=== PATIENT | male | born 1945 | race Caucasian/White ===

== ENCOUNTER 2024-12-23 01:22 | Day surgery (SDC) | payer MEDICARE, BC, SELFPAY ==
[2024-12-13 11:54] VITALS: BMI 32.0
--- OUTSIDE RECORDS SUMMARY | 2024-12-23 01:24 | XMS_ITS | Referral Summary ---
Author Organization [facility] [employer] Address [address] [address] Care Team Providers Care Ecommerce Manager Name Role Phone Fifi Alfonzo Sal DO Primary Care Provider [phone] Source Comments [facility],non-owned Affiliates and Associated Physician Practices is amultiple site organization consisting of ambulatory clinics and hospital sitesin [place] and [place]. This disclosure is being madepursuant to the Care Everywhere program and may not contain all information available regarding this patient. Last updated 18.[facility] Allergies No known active allergies Medications * Be aware that medications may not be up to date on this document. Alwaysverify current medications with the patient. Medication Sig Dispensed Refills Start Date End Date Status amLODIPine (NORVASC) 10 MG tablet Take 10 mg by mouth at bedtime 06/06/2021 Active carvedilol (COREG) 25 MG tablet 25 mg 2 times daily with morning and evening meal 06/25/2021 Active dutasteride (AVODART) 0.5 MG capsule Take 0.5 mg by mouth at bedtime 05/10/2021 Active metFORMIN (GLUCOPHAGE) 500 MG tablet Take 500 mg by mouth 2 times daily 06/17/2021 Active ramipril (ALTACE) 10 MG capsule Take 10 mg by mouth at bedtime 05/18/2021 Active omeprazole (PRILOSEC) 20 MG capsule Take 20 mg by mouth daily before breakfast Active acetaminophen (TYLENOL) 325 MG tablet Take 2 (two) tablets by mouth every 6 hours Maximum allowable Acetaminophen amount = 4 Grams (4000 mg) / 24 hours. Take every 6 hours for the first 10 days when home. After 10 days, take as needed. 0 07/20/2021 Active ibuprofen (MOTRIN) 800 MG tablet Take 800 mg by mouth 2 times daily 12/16/2021 Active Active Problems Problem Noted Date Diagnosed Date Presence of right artificial knee joint 11/08/20 21 Primary osteoarthritis of both knees 06/28/2021 Social History Tobacco Use Types Packs/Day Years Used Date Smoking Tobacco: Never Smokeless Tobacco: Never Alcohol Use Standard Drinks/Week Comments Yes 0 (1 standard drink = 0.6 oz pur e alcohol) ocassionally Sex and Gender Information Value Date Recorded Sex Assigned at Male 08/23/2021 11:45 AM CDT Gender Identity Male 08/23/2021 11:45 AM CDT Sexual Orientation Straight 08/23/2021 11 :45 AM CDT Last Filed Vital Signs Vital Sign Reading Time Taken Comments Blood Pressure 120/65 07/20/2021 11:15 AM CDT Pulse 58 07/20/2021 11:15 AM CDT Temperature 36.7 ??C (98.1 ??F) 07/20/2021 11:15 AM C DT Respiratory Rate 18 07/20/2021 3:29 AM CDT Oxygen Saturation 97% 07/20/2021 11:15 AM CDT Inhaled Oxygen Concentration - - Weight 115.7 kg (255 lb) 11/08/2021 3:26 PM SOLDER CREAM MAKER Height 180.3 cm (5' 11 ) 11/08/2021 3:26 PM SOLDER CREAM MAKER Body Mass Index 35.57 11/08/2021 3:26 PM SOLDER CREAM MAKER Plan of Treatment Not on file Medical Devices Implanted Type Area Runner Worker Device Identifier Shelf Expiration Date Model / Serial / Lot Cmnt Bone Djo Srg Cblt 40gm Hvisc Strl Implanted:Qty: 1 on 07/19/2021 by Rex Smith MD at [facility] Right: Knee [employer] 12/26/2022 600-15-000 / / [id number] Mike Bone Hester-G Hv 40/20 Implanted:Qty: 1 on 07/19/2021 by Rex Smith MD at [facility] Right: Knee [employer] 12/26/2022 600-15-100 / / [id number] Tray Tib 79mm Kn Cocr I Beam Implanted:Qty: 1 on 07/19/2021 by Rex Smith MD at [facility] Right: Knee [employer] 06/10/2030 [id number] / / [id number] Cmpnt Fem Kn Rt Cr Cmnt Prm Vngrd Intlk Implanted:Qty: 1 on 07/19/2021 by Rex Smith MD at [facility] Right: Knee [employer] 03/15/2031 [id number] / / [id number] Cmpnt Ptlr 31mm 1 Pg Wire Ascnt Arcm Kn Implanted:Qty: 1 on 07/19/2021 by Rex Smith MD at [facility] Right: Knee [employer] 06/15/2026 [id number] / / [id number] Vngrd Arcm Kn Ant Stab Implanted:Qty: 1 on 07/19/2021 by Rex Smith MD at [facility] Right: Knee [employer] 04/04/2026 [id number] / / [id number] Advance Directives * Full Code (Latest Code Status on File) Date Activated Date Inactivated Comments 07/19/2021 3:22 PM 07/20/2021 4:14 PM Care Teams Ecommerce Manager Relationship Specialty Start Date End Date Alfonzo Calix DO [address] [facility] [address] [place] [address] PCP - General 01/01/19
--- OUTSIDE RECORDS SUMMARY | 2024-12-23 01:24 | XMS_ITS | Patient Health Summary ---
Author Organization [facility] Address [address] [place] [address] Care Team Providers Care Legal Document Specialist Name Role Phone Alfonzo Calix Primary Care Provider [phone] Note [address] [facility],non-owned Affiliates and Associated Physician Practices is amultiple site organization consisting of ambulatory clinics and hospital sitesin [place], [place], [place] and [place]. This disclosure is being madepursuant to the Care Everywhere program and may not contain all information available regarding this patient. Last updated 18.[facility] [employer] Allergies No known active allergies Medications * Be aware that medications may not be up to date on this document. Alwaysverify current medications with the patient. * amLODIPine (NORVASC) 10 MG tablet(Started 06/06/2021) Take 10 mg by mouth at bedtime * carvedilol (COREG) 25 MG tablet(Started 06/25/2021) 25 mg 2 times daily with morning and evening meal * dutasteride (AVODART) 0.5 MG capsule(Started 05/10/2021) Take 0.5 mg by mouth at bedtime * metFORMIN (GLUCOPHAGE) 500 MG tablet(Started 06/17/2021) Take 500 mg by mouth 2 times daily * ramipril (ALTACE) 10 MG capsule(Started 05/18/2021) Take 10 mg by mouth at bedtime * omeprazole (PRILOSEC) 20 MG capsule Take 20 mg by mouth daily before breakfast * acetaminophen (TYLENOL) 325 MG tablet(Started 07/20/2021) Take 2 (two) tablets by mouth every 6 hours Maximum allowable Acetaminophen amount = 4 Grams (4000 mg) / 24 hours. Take every 6 hours for the first 10 days when home. After 10 days, take as needed. * ibuprofen (MOTRIN) 800 MG tablet(Started 12/16/2021) Take 800 mg by mouth 2 times daily Active Problems Problem Noted Date Diagnosed Date [...] 115.7 kg (255 lb) 11/08/2021 3:26 PM RAILS DEVELOPER Height 180.3 cm (5' 11 ) 11/08/2021 3:26 PM RAILS DEVELOPER Body Mass Index 35.57 11/08/2021 3:26 PM RAILS DEVELOPER Medical Devices Implanted Type Area Paraffin Plant Sweater Operator Device Identifier Shelf Expiration Date Model / Serial / Lot Cmnt Bone Djo Srg Cblt 40gm Hvisc Strl Implanted:Qty: 1 on 07/19/2021 by Rex Smith MD at [facility] Right: Knee [employer] 12/26/2022 600-15-000 / / [id number] Mike Bone Satin-G Hv 40/20 Implanted:Qty: 1 on 07/19/2021 by Rex Smith MD at [facility] Right: Knee [employer] 12/26/2022 600-15-100 / / [id number] Tray Tib 79mm Kn Cocr I Beam Implanted:Qty: 1 on 07/19/2021 by Rex Smith MD at [facility] Right: Knee [employer] 06/10/2030 [id number] / / [id number] Cmpnt Fem Kn Rt Cr Cmnt Prm Vngrd Intlk Implanted:Qty: 1 on 07/19/2021 by Rex Smith MD at [facility] Right: Knee [employer] 03/15/2031 [id number] / / [id number] Cmpnt Ptlr 31mm 1 Pg Wire Ascnt Arcm Kn Implanted:Qty: 1 on 07/19/2021 by Rex Smith MD at [facility] Right: Knee [employer] 06/15/2026 [id number] / / [id number] [id number] Vngrd Arcm Kn Ant Stab Implanted:Qty: 1 on 07/19/2021 by Rex Smith MD at [facility] Right: Knee [employer] 04/04/2026 [id number] / / [id number] Procedures * XR KNEE RIGHT 3VW(Performed 08/30/2021) Performed for Aftercare following right knee joint replacement surgery * GLUCOSE - POINT OF CARE(Performed 07/20/2021) * GLUCOSE - POINT OF CARE(Performed 07/20/2021) * GLUCOSE - POINT OF CARE(Performed 07/19/2021) * GLUCOSE - POINT OF CARE(Performed 07/19/2021) * NEURAXIAL BLOCK(Performed 07/19/2021) * CA TOTAL KNEE REPLACEMENT(Performed 07/19/2021) * GLUCOSE - POINT OF CARE(Performed 07/19/2021) * EKG 12-LEAD(Performed 07/02/2021) Performed for Preop examination * CBC W AUTO DIFFERENTIAL(Performed 07/02/2021) Performed for Preop examination * XR KNEE BILAT 3VW(Performed 06/26/2021) Performed for Pain in both knees, unspecified chronicity Results * XR KNEE RIGHT 3VW (08/30/2021 3:09 PM CDT) Anatomical Region Laterality Modality Lower Extremity Computed Radiogr aphy Narrative 08/30/2021 3:10 PM CDT Abimbola Salas, ? 09/07/2021 ??2:37 PM Please see progress notes for results Doug Ball PA-C DIAGNOSTIC IMAGING ORDERABLES * (ABNORMAL) GLUCOSE - POINT OF CARE (07/20/2021 11:16 AM CDT) Only the most recent of5 resultswithin the time period is included. Pathologist [facility] Glucose WB/POC 179(H) 70 - 106 mg/dL 07/20/2021 11:30 AM CDT [facility] Specimen Type Arterial/C apillary 07/20/2021 11:30 AM CDT [facility] Blood BLOOD SPECIMEN / Unknown 07/20/2021 11:16 AM CDT 07/20/2021 11:30 AM CDT Rex Smith MD LAB - POINT OF CARE ORDERABLES Performing Organization Address City/State/[facility] Co de Phone Number [facility] [address] [place] [address] * Neuraxial Block (07/19/2021 12:22 PM CDT) Narrative Robinson Benitez APRN-CRNA - 07/19/2021 12:22 PM CDT Robinson Benitez APRN-CRNA ? 07/19/2021 12:23 PM Neuraxial Block Note ?? Pre-Procedure: ?? Procedure Name: ??Neuraxial Block Patient Location: ??OR Indications: ??surgical anesthesia Pre-Anesthetic Checklist: ??Patient identified, IV Checked, Risks and benefits discussed, Surgical consent verified, Monitors and equipment, Site examined, Pre-op evaluation done, Time-out performed, Informed consent obtained, Questions answered/anesthesia questions answered and Allergies reviewed Anticoagulation/ Anti-thrombosis status confirmed? ??Yes Supplemental O2: ??face mask Monitors: ??BP, continuous pluse ox, EKG and End tidal CO2 Patient Condition: ??sedated, meaningful contact maintained throughout procedure Patient Sedated? ??Yes ? Sedation Type: ??moderate Procedure: ?? Block Type: ??Spinal Prep: ??Betadine Sterile Field: ??mask, cap/hat, sterile established and sterile gloves Approach: ??right paramedian Skin was localized? ??Yes Spinal Block: ?? Needle Type: ??spinal needle Needle Gauge: ??22 Needle Length: ??90 mm Placement Site: ??L2-3 Number of Attempts: ??2 CSF: ??free flow Local anesthetics used? ??Yes Degree of difficulty: ??moderate Procedure Tolerance: ??tolerated well Sensory Level: ??thoracic lumbo Motor Blockade: ??Yes Position post procedure: ??supine Vital Signs: ??Vital signs monitored and stable throughout. ??See anesthesia record for details. Staff: ?? Anesthesia Provider: ??Robinson Benitez APRN-CRNA ?? - ?? performed the procedure Robinson [facility] ORDERABLES * EKG 12-LEAD (07/02/2021 9:03 AM CDT) Ventricular Rate 59 BPM [facility] Atrial Rate 59 BPM [facility] P-R Interval 194 ms [facility] QRS Duration ms 112 ms [facility] Q-T Interval ms 432 ms [facility] QTC Calculation (Bezet) 427 ms [facility] Calculated P [place] 2 degrees [facility] Calculated R [place] -7 degrees [facility] Calculated T [place] 10 degrees [facility] Interpretation EKG Sinus bradycardia Otherwise normal ECG No previous ECGs available Confirmed by YARELI GELLER MD ([id number]) on 07/02/2021 1:23:00 PM [facility] 07/02/2021 9:03 AM CDT 07/02/2021 1:23 PM CDT Steph Alegria DO ECG ORDERABLES [facility] * (ABNORMAL) CBC W AUTO DIFFERENTIAL (07/02/2021 8:34 AM CDT) WBC 7.7 4.4 - 10.7 x10E9/L 07/02/2021 8:44 AM CDT [facility] WBC Corrected 07/02/2021 8:44 AM CDT [facility] RBC 4.73 3.80 - 5.40 x10E12/L 07/02/2021 8:44 AM CDT [facility] Hemoglobin 14.8 12.0 - 17.6 gm/dL 07/02/2021 8:44 AM CDT [facility] Hematocrit 43.6 35.2 - 51.7 % 07/02/2021 8:44 AM CDT [facility] MCV 92.2 80.7 - 98.3 fl 07/02/2021 8:44 AM CDT [facility] MCH 31.3 26.7 - 34.0 pg 07/02/2021 8:44 AM CDT [facility] MCHC 33.9 30.8 - 35.9 gm/dL 07/02/2021 8:44 AM CDT [facility] Platelet Count 201 153 - 416 x10E9/L 07/02/2021 8:44 AM CDT [facility] RDW-CV 13.1 12.1 - 14.9 % 07/02/2021 8:44 AM CDT [facility] MPV 10.4 9.4 - 12.9 fl 07/02/2021 8:44 AM CDT [facility] Neutrophils % 58.3 44.0 - 73.0 % 07/02/2021 8:44 AM CDT [facility] Lymphocytes % 23.5 20.0 - 43.0 % 07/02/2021 8:44 AM CDT [facility] Monocytes % 6.9 5.0 - 13.0 % 07/02/2021 8:44 AM CDT [facility] Eosinophils % 10.0(H) 0.0 - 6.0 % 07/02/2021 8:44 AM CDT [facility] Basophils % 1.0 0.0 - 2.0 % 07/02/2021 8:44 AM CDT [facility] Immature Granulocytes 0.3 0 - 1 % 07/02/2021 8:44 AM CDT [facility] Neutrophil Absolute 4.51 2.01 - 7.14 x10E9/L 07/02/2021 8:44 AM CDT [facility] Lymphocytes Absolute 1.82 1.07 - 3.94 x10E9/L 07/02/2021 8:44 AM CDT [facility] Monocytes Absolute 0.53 0.26 - 1.07 x10E9/L 07/02/2021 8:44 AM CDT [facility] Eosinophils Absolute 0.77(H) 0 - 0.47 x10E9/L 07/02/2021 8:44 AM CDT [facility] Basophils Absolute 0.08 0 - 0.08 x10E9/L 07/02/2021 8:44 AM CDT [facility] Immature Granulocytes Absolute 0.02 0.00 - 0.06 x10E9/L 07/02/2021 8:44 AM CDT [facility] nRBC Auto 0 /100 WBC 07/02/2021 8:44 AM CDT [facility] Blood BLOOD SPECIMEN / Unknown Venipuncture / Unknown 07/02/2021 8:34 AM CDT 07/02/2021 8:41 AM CDT Taylor Amos HIDE SORTER-CREDIT OPERATIONS PROCESSOR LAB - HEMATOLOG Y ORDERABLES Performing Organization Address City/State/[facility] Co de Phone Number [facility] [address] [place] [address] * XR KNEE BILAT 3VW (06/26/2021 11:23 AM CDT) Anatomical Region Laterality Modality Lower Extremity Computed Radiogr aphy Narrative 06/26/2021 11:25 AM CDT Roldan Drummond ? 07/05/2021 ??9:25 AM See progress notes for patient results. Claudia Carlisle PA-C DIAGNOSTIC IM AGING ORDERABLES Care Teams Legal Document Specialist Relationship Specialty Start Date End Date Alfonzo Calix DO [address] [place] [address] PCP - General 01/01/19
--- OUTSIDE RECORDS SUMMARY | 2024-12-23 01:24 | XMS_ITS | Clinical Summary ---
Author Organization [facility] [employer] Address [address] [place] [address] Care Team Providers Care Pit Furnace Operator Name Role Phone FifiIgorAlfonzozeny Sal DO Primary Care Provider [phone] Source Comments [employer],non-owned Affiliates and Associated Physician Practices is amultiple site organization consisting of ambulatory clinics and hospital sitesin [place], [place], [place] and [place]. This disclosure is being madepursuant to the Care Everywhere program and may not contain all information available regarding this patient. Last updated 18.[employer] Allergies No known active allergies Medications * [...] 115.7 kg (255 lb) 11/08/2021 3:26 PM C D AREA SUPERVISOR Height 180.3 cm (5' 11 ) 11/08/2021 3:26 PM C D AREA SUPERVISOR Body Mass Index 35.57 11/08/2021 3:26 PM C D AREA SUPERVISOR Plan of Treatment Health Maintenance Due Date Last Done Comments MEDICARE AWV ? 12 MONTHS 1945 HEPATITIS C SCREENING 11/25/1965 DTAP/TDAP/TD VACCINES (1 - Tdap) 1966 PNEUMOCOCCAL VACCINE 50+ (1 of 1 - PCV) 1997 ZOSTER VACCINE (1 of 2) 1997 Respiratory Syncytial Virus (RSV) Vaccine Pt: or over 60 yrs (1 - 1-dose 75+ series) 2022 COVID-19 VACCINE (3 - 2023-2 5 season) 2024 02/08/2021, 01/18/2021 INFLUENZA VACCINE (#1) 2024 09/23/2020 DEPRESSION SCREENING 11/24/2024 HEPATITIS B VACCINE Aged Out No longe r eligible based on patient's age to complete this topic HIB VACCINE Aged Out No longer eligi ble based on patient's age to complete this topic HPV VACCINE Aged Out No longer eligi ble based on patient's age to complete this topic MENINGOCOCCAL (Group B) VACCINE Aged Out No longer eligible b ased on patient's age to complete this topic MENINGOCOCCAL VACCINE Aged Out No patrick nuzhat eligible based on patient's age to complete this topic Medical Devices Implanted Type Area Practicing Md Anesthesiologist Device Identifier Shelf Expiration Date Model / Serial / Lot Cmnt Bone Djo Srg Cblt 40gm Hvisc Strl Implanted:Qty: 1 on 07/19/2021 by Rex Smith MD at [facility] Right: Knee [employer] 12/26/2022 600-15-000 / / [id number] Mike Bone [place]-G Hv 40/20 Implanted:Qty: 1 on 07/19/2021 by Rex Smith MD at [facility] Right: Knee [employer] 12/26/2022 600-15-100 / / [id number] Tray Tib 79mm Kn Cocr I Beam Implanted:Qty: 1 on 07/19/2021 by Rex Smith MD at [facility] Right: Knee [employer] 06/10/2030 [id number] / / [id number] Cmpnt Fem Kn Rt Cr Cmnt Prm Vngrd Intlk Implanted:Qty: 1 on 07/19/2021 by Rex Smith MD at [facility] Right: Knee [employer] 03/15/2031 [id number] / / [id number] Cmpnt Ptlr 31mm 1 Pg Wire Ascnt Arcm Kn Implanted:Qty: 1 on 07/19/2021 by Rex Smith MD at [facility] Right: Knee [employer] 06/15/2026 [id number] / / [id number] [id number] Vngrd Arcm Kn Ant Stab Implanted:Qty: 1 on 07/19/2021 by Rex Smith MD at [facility] Right: Knee [employer] 04/04/2026 [id number] / / [id number] Advance Directives * Full Code (Latest Code Status on File) Date Activated Date Inactivated Comments 07/19/2021 3:22 PM 07/20/2021 4:14 PM Care Teams Pit Furnace Operator Relationship Specialty Start Date End Date Alfonzo Calix DO [address] [facility] [address] [facility] [address] [place], [place] [id number] PCP - General 01/01/19
[2024-12-23 11:40] VITALS: BP 156/81; PULSE 66; RESP 16; TEMP 36.2; O2SAT 99; BMI 31.4
[2024-12-23] MEDS: LACTATED RINGERS 1,000 ML 150 ML IV CONT (11:48)
[2024-12-23 11:50] LABS: Glucose Point of Care 94 mg/dl (65-105)
--- NOTE | 2024-12-23 12:05 | WPDANESEPPF ---
Anes - Initial Pre Proc Eval Procedure: Operation Date: 12/23/24 13:00 Proposed Procedures p Screening Colonoscopy - Carson Hernandez MD Date/Time: 12/23/24 12:05 Surgeon: Carson Hernandez MD Pre Op Diagnosis: Hx colon polyps Patient Data Age: 79 Gender: M Height: 1.83 m Weight: 104.9 kg Last Vital Signs Temp 36.2 C L 12/23/24 11:40 Pulse 66 12/23/24 11:40 Resp 16 12/23/24 11:40 BP 156/81 H 12/23/24 11:40 Pulse Ox 99 12/23/24 11:40 O2 Del Method Room Air 12/23/24 11:40 Allergies Allergy/AdvReac Type Severity Reaction Status Date / Time No Known Allergies Allergy Verified 12/23/24 11:38 Home Medications ?Medication ?Instructions ?Recorded ?Confirmed ?Type omeprazole 20 mg tablet,delayed 20 mg PO DAILY 11/30/19 12/23/24 History release amlodipine 10 mg tablet 10 mg PO DAILY #90 tabs 05/03/24 12/23/24 Rx carvedilol 25 mg tablet (Coreg) 25 mg PO Q12H #180 tabs 05/29/24 12/23/24 Rx metformin 500 mg tablet See Rx Instructions .Route 10/18/24 12/23/24 Rx .COMPLEX #180 tabs ramipril 10 mg capsule 10 mg PO DAILY #90 caps 12/21/24 12/23/24 Rx Laboratory Tests 12/23/24 11:48 POC Capillary Glucose 94 mg/dl (65-105) Patient hx anesthesia problems: none Family hx anesthesia problems: none Results Review: All pre-operative results and documents have been reviewed as part of the pre-operative evaluation. [facility], [facility] Past Medical History Medical History Hyperglycemia Family History Family History Father Acute myocardial infarction, Onset Age: 75 Patient's father is Mother Patient's mother is Social History Social History Smoking status: Never smoker Second hand tobacco smoke exposure: No Alcohol intake: never Drinks per week: 1 Substance use: never Substance use type: does not use Lack of Transportation: No Lack of Food: Never True Current Housing: I Have Housing Concerned About Future Housing: No Difficulty Paying Gas/Electric Bills: No Difficulty Paying for Meds: No Currently Unemployed: No Education: Trade/Vocational Certificate Difficulty w/ Childcare or Family Care: No Living arrangements: with family Spiritual care concerns: No Anes - Eval Final PreProcedure Day of Procedure 12/23/24 12:05 Patient weight: obese Heart: regular rate and rhythm Lungs: clear to auscultation Airway: Mallampati scale class II Neurological: alert and oriented Last oral intake: >/= 8 hours ASA classification: III Emergent: no Anesthetic plan: proceed Anesthesia type and monitoring: general GIVS and standard monitoring Results Review: All pre-operative results and documents have been reviewed as part of the pre-operative evaluation. Informed Consent: The patient's anesthetic plan and its attendant risks and benefits were discussed with the patient/family/POA. Questions were solicited and answers provided to the satisfaction of the patient/family/POA.
--- NOTE | 2024-12-23 12:07 | PM.HPGS ---
History of Present Illness History of Present Illness Consent: Risks, benefits, and alternatives have been discussed and questions answered. Patient agrees to proceed with procedure. Chief complaint: Hx colon polyps Narrative: Dheeraj Hyde is a 79 year old male with colon polyp in 2019 Review of Systems Review of Systems: All systems reviewed & are unremarkable except as noted in HPI and below PMFSH Past Medical History Medical History Hyperglycemia Family History Family History Father Acute myocardial infarction, Onset Age: 75 Patient's father is Mother Patient's mother is Social History Social History Smoking status: Never smoker Second hand tobacco smoke exposure: No Alcohol intake: never Drinks per week: 1 Substance use: never Substance use type: does not use Lack of Transportation: No Lack of Food: Never True Current Housing: I Have Housing Concerned About Future Housing: No Difficulty Paying Gas/Electric Bills: No Difficulty Paying for Meds: No Currently Unemployed: No Education: Trade/Vocational Certificate Difficulty w/ Childcare or Family Care: No Living arrangements: with family Spiritual care concerns: No Meds Home Medications and Allergies Home Medications ?Medication ?Instructions ?Recorded ?Confirmed ?Type omeprazole 20 mg tablet,delayed 20 mg PO DAILY 11/30/19 12/23/24 History release amlodipine 10 mg tablet 10 mg PO DAILY #90 tabs 05/03/24 12/23/24 Rx carvedilol 25 mg tablet (Coreg) 25 mg PO Q12H #180 tabs 05/29/24 12/23/24 Rx metformin 500 mg tablet See Rx Instructions .Route 10/18/24 12/23/24 Rx .COMPLEX #180 tabs ramipril 10 mg capsule 10 mg PO DAILY #90 caps 12/21/24 12/23/24 Rx Allergies Allergy/AdvReac Type Severity Reaction Status Date / Time No Known Allergies Allergy Verified 12/23/24 11:38 Vital Signs Vital Signs - 24 hr 12/23/24 11:40 Temperature 97.1 F L Pulse Rate 66 Respiratory Rate 16 Blood Pressure 156/81 H Pulse Oximetry 99 Oxygen Delivery Room Air Exam Const: General: comfortable and no acute distress HENMT: Face/Nose/Sinus: Normal nares present Eyes: General: appearance normal, both eyes and all related structures Neck: Neck: no JVD Resp: Auscultation: clear to auscultation bilaterally Cardio: Rate: regular rate Rhythm: regular rhythm GI: Inspection: non-distended GI Palp: Yes Soft to palpation Skin: General skin exam: normal color Neuro: Speech: normal speech Extrem: General: normal to inspection Psych: Mental Status: mental status grossly normal Assessment and Plan Assessment and plan (1) Colon polyps: Code(s): K63.5 - Polyp of colon Status: Acute Assessment and Plan: colonoscopy
[2024-12-23 12:24] VITALS: BP 105/69; PULSE 53; RESP 19; O2SAT 95
[2024-12-23 12:34] VITALS: BP 111/66; PULSE 52; RESP 18; O2SAT 97
[2024-12-23 12:44] VITALS: BP 110/68; PULSE 53; RESP 14; O2SAT 97
== END 2024-12-23 12:50 | disposition home or self-care (01) ==
PROVIDERS: PCP Internal Medicine; Referring Provider Internal Medicine; Visit Provider Internal Medicine Gastroenterology
PROC: 0DJD8ZZ Inspection of Lower Intestinal Tract, Via Natural or Artificial Opening Endoscopic (ICD-10-PCS; CPT 45378; principal; 2024-12-23 13:00)
DX: Z12.11 Encounter for screening for malignant neoplasm of colon (principal); D12.5 Benign neoplasm of sigmoid colon; K64.8 Other hemorrhoids; Z79.84 Long term (current) use of oral hypoglycemic drugs; E66.9 Obesity, unspecified; Z68.31 Body mass index [BMI] 31.0-31.9, adult
CPT/HCPCS: 45385; 82948; 88305; J2704; J7120

== ENCOUNTER 2025-06-17 19:17 | Emergency (ER) | payer MEDICARE, BC, SELFPAY ==
--- NOTE | ~2025-06-17 | CT_ITS ---
History: Fall PROCEDURE: CT head without contrast. COMPARISON: None TECHNIQUE: Axial imaging of the head performed from the skull base to the vertex without IV contrast. Sagittal a nd coronal reformations obtained. DLP: 681 mGy-cm FINDINGS: The ventricles are enlarged. The dilatation of the ventricles is proportional to the degree of sulcal prominence, not uncommon in the senescent brain. Decreased attenuation is identified within the periventricular white matter, likely secondary to micr ovascular ischemic disease, in a patient of this age. There is no mass, mass effect or midline shift. There is no abnormal extra-axial fluid collection or intracranial hemorrhage. Visualized paranasal sinuses are clear. The mastoid air cells are well aerated. No acute displaced fractures within the overlying cranium. Impression: No acute intracranial hemorrhage or suspicious mass effect. Reviewed, dictated and finalized at location A. Impression: No acute intracranial hemorrhage or suspicious mass effect.
--- NOTE | ~2025-06-17 | XR_ITS ---
HISTORY: fall COMPARISON: 04/22/2009, (preoperative evaluation) TECHNIQUE: 4 views of the right knee FINDINGS: Evidence of total right knee replacement with patellar resurfacing. Increased space within the cranial most portion of the femoral component and the bone surface, measur ing 3.7 mm. Irregularity of the contour of the patella and its relation to the distal femur on lateral view. Oblique view demonstrates increased lucency along the medial inferior portion of the proximal tibia, caudal to the tibial component suggesting periprosthetic osteolysis. Significant osteophyte formation is identified within the distal femur, as well as the undersurface o f the patella (both cranial and caudal surface). Ossification of the insertion of the quadriceps tendon. Ossification of the surface of the tibial patellar tendon. Moderate suprapatellar joint effusion. Possible infrapatellar joint effusion is also noted. Significant skin thickening is detected within the anterior knee suggesting edema. Focal areas of calcification surrounding right knee joint with smooth endosteal scalloping. 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 Focal areas of calcification surrounding the right knee joint with smooth endosteal scalloping. 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 Reviewed, dictated and finalized at location A. 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 Focal areas of ca lcification surrounding the right knee joint with smooth endosteal scalloping. 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
--- OUTSIDE RECORDS SUMMARY | 2025-06-17 19:19 | XMS_ITS | Clinical Summary ---
Author Organization [facility] Address [address] [place] [address] Care Team Providers Care Airport Ramp Supervisor Name Role Phone Igor Calixzeny Sal DO Primary Care Provider [phone] Source Comments [facility],non-owned Affiliates and Associated Physician Practices is amultiple site organization consisting of ambulatory clinics and hospital sitesin [place], [place], [place] and [place]. This disclosure is being madepursuant to the Care Everywhere program and may not contain all information available regarding this patient. Last updated 18.[facility] Allergies No known active allergies Medications * Be aware that medications may not be up to date on this document. Alwaysverify current medications with the patient. amLODIPine (NORVASC) 10 MG tablet Take 10 mg by mouth at bedtime 1 Active carvedilol (COREG) 25 MG tablet 25 mg 2 times daily with morning and evening meal 1 Active dutasteride (AVODART) 0.5 MG capsule Take 0.5 mg by mouth at bedtime 1 Active metFORMIN (GLUCOPHAGE) 500 MG tablet Take 500 mg by mouth 2 times daily 1 Active ramipril (ALTACE) 10 MG capsule Take 10 mg by mouth at bedtime 1 Active omeprazole (PRILOSEC) 20 MG capsule Take 20 mg by mouth daily before breakfast Active acetaminophen (TYLENOL) 325 MG tablet Take 2 (two) tablets by mouth every 6 hours Maximum allowable Acetaminophen amount = 4 Grams (4000 mg) / 24 hours. Take every 6 hours for the first 10 days when home. After 10 days, take as needed. 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 Gender Identity Male 08/23/2021 11:45 AM CDT Sexual Orientation Straight 08/23/2021 11 :45 AM CDT Last Filed Vital Signs Vital Sign Reading Time Taken Comments Blood Pressure 120/65 07/20/2021 11:15 AM CDT Pulse 58 07/20/2021 11:15 AM CDT Temperature 36.7 C (98.1 F) 07/20/2021 11:15 AM CDT Respiratory Rate 18 07/20/2021 3:29 AM CDT Oxygen Saturation 97% 07/20/2021 11:15 AM CDT Inhaled Oxygen Concentration - - Weight 115.7 kg (255 lb) 11/08/2021 3:26 PM ADVERTISING PRODUCTION MANAGER Height 180.3 cm (5' 11) 11/08/2021 3:26 PM ADVERTISING PRODUCTION MANAGER Body Mass Index 35.57 11/08/2021 3:26 PM ADVERTISING PRODUCTION MANAGER Plan of Treatment Health Maintenance Due Date Last Done Comments MEDICARE AWV 12 MONTHS 1945 HEPATITIS C SCREENING 11/25/1965 DTAP/TDAP/TD VACCINES (1 - Tdap) 1966 PNEUMOCOCCAL VACCINE 50+ (1 of 1 - PCV) 1997 ZOSTER VACCINE (1 of 2) 1997 Respiratory Syncytial Virus (RSV) Vaccine Pt: or over 60 yrs (1 - 1-dose 75+ series) 2022 COVID-19 VACCINE (3 - 2023-2 5 season) 2024 02/08/2021, 01/18/2021 DEPRESSION SCREENING 11/24/2024 INFLUENZA VACCINE (#1) 2025 09/23/2020 HEPATITIS B VACCINE Aged Out No longe r eligible based on patient's age to complete this topic HIB VACCINE Aged Out No longer eligi ble based on patient's age to complete this topic HPV VACCINE Aged Out No longer eligi ble based on patient's age to complete this topic MENINGOCOCCAL (Group B) VACCINE SHARED DECISION-MAKING Aged Out No longer eligible based on patient's age to complete this topic MENINGOCOCCAL GROUPS A/C/Y/W VACCINE Aged Out No longer eligible b ased on patient's age to complete this topic Medical Devices Implanted Type Area Client Analyst Device Identifier Shelf Expiration Date Model / Serial / Lot Cmnt Bone Djo Srg Cblt 40gm Hvisc Strl Implanted:Qty: 1 on 07/19/2021 by Rex Smith MD at [facility] Right: Knee [employer] 12/26/2022 600-15-000 / / [id number] Mike Bone [place]-G Hv 40/20 Implanted:Qty: 1 on 07/19/2021 by Rex Smith MD at [facility] Right: Knee [employer] 12/26/2022 600-15-100 / / [id number] Tray Tib 79mm Kn Cocr I Beam Implanted:Qty: 1 on 07/19/2021 by Rex Smith MD at [facility] Right: Knee [employer] 06/10/2030 [id number] / / [id number] Cmpnt Fem Kn Rt Cr Cmnt Prm Vngrd Intlk Implanted:Qty: 1 on 07/19/2021 by Rex Smith MD at [facility] Right: Knee [employer] 03/15/2031 [id number] / / [id number] Cmpnt Ptlr 31mm 1 Pg Wire Ascnt Arcm Kn Implanted:Qty: 1 on 07/19/2021 by Rex Smith MD at [facility] Right: Knee [employer] 06/15/2026 [id number] / / [id number] Vngrd Arcm Kn Ant Stab Implanted:Qty: 1 on 07/19/2021 by Rex Smith MD at [facility] Right: Knee [employer] 04/04/2026 [id number] / / [id number] Insurance [facility] Address: [address] [place] [address] [facility]ICARE [facility] Advance Directives * Full Code (Latest Code Status on File) Date Activated Date Inactivated Comments 07/19/2021 3:22 PM 07/20/2021 4:14 PM Care Teams Airport Ramp Supervisor Relationship Specialty Start Date End Date Alfonzo Calix DO [address] [facility] [facility] [address] [place] [address] PCP - General 01/01/19
[2025-06-17 19:25] VITALS: BP 125/61; PULSE 73; RESP 20; TEMP 37.7; O2SAT 95
--- OUTSIDE RECORDS SUMMARY | 2025-06-18 00:41 | XMS_ITS | Clinical Summary ---
Author Organization [facility] Address [address] [place] [address] Care Team Providers Care Multiple Spindle Screw Machine Operator Name Role Phone Igor Calixzeny Sal DO Primary Care Provider [phone] Source Comments [facility],non-owned Affiliates and Associated Physician Practices is amultiple site organization consisting of ambulatory clinics and hospital sitesin [place], [place], [place] and [place]. This disclosure is being madepursuant to the Care Everywhere program and may not contain all information available regarding this patient. Last updated 18.[facility] Allergies No known active allergies Medications * [...] AM CDT Legal Sex Male 8:23 AM AGRONOMY ADVISOR Gender Identity Male 08/23/2021 11:45 AM CDT [...] 115.7 kg (255 lb) 11/08/2021 3:26 PM AGRONOMY ADVISOR Height 180.3 cm (5' 11) 11/08/2021 3:26 PM AGRONOMY ADVISOR Body Mass Index 35.57 11/08/2021 3:26 PM AGRONOMY ADVISOR Plan of Treatment Health Maintenance Due Date [...] this topic Medical Devices Implanted Type Area E Commerce Project Manager Device Identifier Shelf Expiration Date Model / Serial / Lot Cmnt Bone Djo Srg Cblt 40gm Hvisc Strl Implanted:Qty: 1 on 07/19/2021 by Rex Smith MD at [facility] Right: Knee [employer] 12/26/2022 600-15-000 / / [id number] Mike Bone [place]-G Hv 40/20 Implanted:Qty: 1 on 07/19/2021 by Rex Smith MD at [facility] Right: Knee [employer] 12/26/2022 600-15-100 / / [id number] Tray Tib 79mm Kn Cocr I Beam Implanted:Qty: 1 on 07/19/2021 by Rex Smith MD at [facility] Right: Knee [employer] 06/10/2030 [id number] / / [id number] Cmpnt Fem Kn Rt Cr Cmnt Prm Vngrd Intlk Implanted:Qty: 1 on 07/19/2021 by Rex Smith MD at [facility] Right: Knee [employer] 03/15/2031 [id number] / / [id number] Cmpnt Ptlr 31mm 1 Pg Wire Ascnt Arcm Kn Implanted:Qty: 1 on 07/19/2021 by Rex Smith MD at [facility] Right: Knee [employer] 06/15/2026 [id number] / / [id number] [id number] Vngrd Arcm Kn Ant Stab Implanted:Qty: 1 on 07/19/2021 by Rex Smith MD at [facility] Right: Knee [employer] 04/04/2026 [id number] / / [id number] Insurance MEDICARE [facility] MEDICARE [facility] Advance Directives * Full Code (Latest Code Status on File) Date Activated Date Inactivated Comments 07/19/2021 3:22 PM 07/20/2021 4:14 PM Care Teams Multiple Spindle Screw Machine Operator Relationship Specialty Start Date End Date Alfonzo Calix DO [address] [facility] [address] [place] [address] PCP - General 01/01/19
--- NOTE | 2025-06-18 01:29 | ED.LOWEXIN ---
HPI - Extremity Injury (Lower) General Chief Complaint: Extremity Injury, Lower Stated Complaint: knees not working right Time Seen by Provider: 06/18/25 00:33 Source: patient and family Mode of arrival: ambulatory Limitations: no limitations History of Present Illness HPI Narrative: Patient presents with complaint of right knee issues. He states 2 days ago he fell because he tripped. He skinned both of his knees and struck his head but otherwise was feeling ok and did not present for evaluation. Patient has a history of a right knee replacement due to it being bone to bone (no trauma/fracture as inciting event). This procedure was performed at [facility] with orthopedist Dr Gonzalez whom he had postoperative follow-up but otherwise does not regularly see. Today, patient states that his right knee gave out spontaneously. He can bend it and perform movement and is without significant pain but he notes that it abruptly became unstable. Denies any khushboo weakness. Denies shortness of breath. He takes Tylenol p.r.n.. He denies any paresthesias. Not on anticoagulation. He notes that when he experienced this episode of instability today he was fortunately standing next to a car and therefore did not fall. Related Data Home Medications ?Medication ?Instructions ?Recorded ?Confirmed ?Last Taken ?Type omeprazole 20 mg tablet,delayed 20 mg PO DAILY 11/30/19 12/23/24 12/22/24 History release Allergies Allergy/AdvReac Type Severity Reaction Status Date / Time No Known Allergies Allergy Verified 06/17/25 19:34 [facility] Past Medical History Medical History Welcome to Medicare preventive visit Pain in unspecified knee Other fatigue Gastro-esophageal reflux disease without esophagitis Encounter for screening for malignant neoplasm of prostate Encounter for screening colonoscopy Hyperglycemia Surgical History Surgical History Status post right knee replacement 2020, Dr Gonzalez, [facility] Family History Family History (Updated 02/15/25 @ 08:34 by Kymberly Benitez [facility]) Father Acute myocardial infarction, Onset Age: 75 Mother No problems noted. 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 HEAD: Normocephalic, L nondenominational ecchymosis, healing. EYES: Non injected, non icteric ENT: Nares clear, no rhinorrhea or epistaxis. Gross auditory acuity intact. NECK: Supple. No meningismus. CHEST: Speaking in full sentences. No respiratory distress. HEART: Regular rate and rhythm. . ABDOMEN: Soft, nondistended. EXTREMITIES: Normal range of motion of bilateral lower extremities at the knees. Bilateral 2-3+ lower extremity edema. Well healed surgical scar overlying R knee. Neither knee joint particularly warm. SKIN: Warm, dry. Bilateral superficial abrasions on knees, healing well. No purulent drainage or surrounding erythema. NEURO: No focal deficits. Alert and oriented. Answering questions. Following commands. Normal speech without aphasia or dysarthria. Sensation intact to gross touch in bilateral lower extremities PSYCH: Normal mood and affect. Course Vital Signs Vital signs: Vital Signs Temperature 99.9 F H 06/17/25 19:25 Pulse Rate 73 06/17/25 19:25 Respiratory Rate 20 06/17/25 19:25 Blood Pressure 125/61 06/17/25 19:25 Pulse Oximetry 95 06/17/25 19:25 Oxygen Delivery Room Air 06/17/25 19:25 Temperature 97.8 F 06/18/25 04:20 Pulse Rate 77 06/18/25 04:20 Respiratory Rate 16 06/18/25 04:20 Blood Pressure 134/82 06/18/25 04:20 Pulse Oximetry 98 06/18/25 04:20 Oxygen Delivery Room Air 06/17/25 19:25 MDM - Extremity Injury (Lower) MDM Narrative Medical decision making narrative: Patient presents with report of his right knee not working.Patient fell 2 days ago when he tripped. At that time he skinned bilateral knees and struck his head, did not present for evaluation. Today his right knee gave out spontaneously while standing and bearing weight. He was standing next to a car so did not fall. History of knee replacement on the Right in 2020, does not follow regularly with that orthopedic surgeon though. Has bilateral 2-3+ lower extremity edema. In the emergency department he is afebrile (slightly elevated) with normal vital signs. Repeat temp is normal. Mild leukocytosis and normocytic anemia. Imaging as below Dimer elevated. Patient offered the choice of staying in the emergency department for the rest of overnight and ordering DVT study to be performed in the morning verses being discharged and having outpatient order for this study. He elects for the latter. Patient given 1 time dose of Xarelto. Otherwise stable for discharge. Confirms his PCP is Dr Almeida who is Cc'd for the results of the outpatient study. Differential Diagnosis Differential diagnosis: Likely acute internal derangement of knee, fracture of femur and other (Meniscal injury, ligamentous injury, considered inflammation and infection of the joint; DVT; rhabdomyolysis; acute heart failure; lymphedema) Lab Data Attestation: I reviewed the patient's lab results. 06/18/25 02:04 06/18/25 02:04 Labs: Lab Results 06/18/25 Range/Units 02:04 WBC 10.7 H (4.5-10.0) K/mm3 RBC 4.08 L (4.6-6.20) M/mm3 Hgb 12.0 L (14.0-18.0) g/dL Hct 36.4 L (42.0-52.0) % MCV 89.2 (80-100) fl MCH 29.4 (26-34) pg MCHC 33.0 (32-36) g/dl RDW 15.3 H (11.5-14.5) % Plt Count 233 (150-375) k/mm3 MPV 9.8 (7.4-10.4) fl Immature Gran % (Auto) 0.3 (0-0.5) % Neut % (Auto) 65.5 (45.5-73.1) % Lymph % (Auto) 21.4 (18.3-44.2) % Worth % (Auto) 10.4 H (2.6-8.5) % Eos % (Auto) 1.9 (0-4.4) % Baso % (Auto) 0.5 (0.2-1.2) % Lymph # (Auto) 2.30 (0.9-3.2) K/mm3 Worth # (Auto) 1.1 H (0.1-0.6) K/mm3 Eos # (Auto) 0.2 (0-0.3) K/mm3 Baso # (Auto) 0.1 (0.0-0.1) K/mm3 Abs Immat Gran (auto) 0.03 (0.00-0.031) K/mm3 Absolute Neuts (auto) 7.0 H (1.3-6.7) K/mm3 Absolute Nucleated RBC 0.000 (0.0-0.012) K/mm3 Nucleated RBC % 0.0 (0.0-0.2) % PT 15.1 H (11.1-14.7) Seconds INR 1.2 APTT 36.5 (22.3-36.8) Seconds D-Dimer 1.51 H (<0.48) ug/mL Sodium 136 L (137-145) mmol/L Potassium 3.6 (3.4-5.0) mmol/L Chloride 104 (98-107) mmol/L Carbon Dioxide 21 L (22-30) mmol/L Anion Gap 11 (4-12) mmol/L BUN 17 (9-20) mg/dL Creatinine 1.14 (0.7-1.3) mg/dL Estim Creat Clear Calc 62 ml/min Estimated GFR > 60 (59 - ) Glucose 132 H (65-110) mg/dL Calcium 9.1 (8.4-10.2) mg/dL Magnesium 1.9 (1.6-2.3) mg/dL Total Bilirubin 0.8 (0.2-1.3) mg/dL AST 27 (17-59) U/L ALT 16 (6-50) U/L Alkaline Phosphatase 40 (38-126) U/L Total Creatine Kinase 160 (55-170) U/L Total Protein 7.6 (6.3-8.2) g/dL Albumin 4.2 (3.5-5.1) g/dL Imaging Data My impression: There appears to be a fair amount of bony distruction throughout the knee Radiologist's impression: XR Right Knee Stat Rad: There is a total knee arthroplasty in standard position and alignment. No periprosthetic fracture or dislocation. There is thin lucency involving the peripheral aspects of the proximal tibia adjacent to the tibial component the arthroplasty, possible early particle disease. Possible small knee joint effusion. Enthesophyte formation on the patella, similar to previous. No incidental findings. CT Head Stat Rad: Mild cerebral atrophy and periventricular white matter low density consistent with chronic small-vessel disease and or senescent changes. The brain is otherwise unremarkable. No acute large vessel infarct or intracranial hemorrhage is seen. Paranasal sinuses are well aerated. There is 1.5 cm polyp or mucosal thickening in the inferior aspect of the right maxillary sinus. No gas fluid levels are seen. Mastoid air cells are normal. No skull fracture or significant scalp hematoma is seen. No incidental findings. Discharge Plan Discharge Clinical Impression: Instability of right knee joint, Abrasion of knee, bilateral, Normocytic anemia, Bilateral lower extremity edema, D-dimer, elevated Fall Qualifiers: Encounter type: sequela Qualified Code(s): W19.XXXS - Unspecified fall, sequela Patient Disposition: Home Condition: Stable Instructions: Antibiotic Form, Fall Prevention for Older Adults (ED), Leg Edema (ED), Abrasion (ED), Swollen Knee Joint (ED), Anemia (ED) Additional Instructions: As we discussed, you received a 1 time dose of a blood thinner and will return to [facility] radiology department in the morning at 7:30am for an ultrasound to assess if you have a DVT. Because you received a 1 time dose of a blood thinner you are to avoid taking NSAID medications you are at slightly increased risk of bleeding. For the instability you feel in your knee, you can follow-up with your orthopedic surgeon or if they are no longer practicing or you are unable to, the name of an orthopedic surgeon listed below. Return to the emergency department with any new or worsening symptoms Patient Language: Canadian Prescriptions: No Action omeprazole 20 mg tablet,delayed release (DR/EC) 20 mg PO DAILY amlodipine 10 mg tablet 10 mg PO DAILY Qty: 90 3RF metformin 500 mg tablet See Rx Instructions .ROUTE .COMPLEX Qty: 180 2RF Dose Instruction: TAKE 1 TABLET BY MOUTH TWICE DAILY Rx Instructions: TAKE 1 TABLET BY MOUTH TWICE DAILY ramipril 10 mg capsule 10 mg PO DAILY Qty: 90 3RF carvedilol [Coreg] 25 mg tablet 25 mg PO Q12H Qty: 180 3RF Follow-up/Referrals: Nick Squires MD [Physician] - Bin Almeida DO [Primary Care Provider] - Stand Alone Forms: Work/School Release IP Time of Disposition: 03:55
[2025-06-18 02:10] LABS: Hematocrit 36.4 % (42.0-52.0); Hemoglobin 12.0 g/dL (14.0-18.0); Immature Granulocyte Percent A 0.3 % (0-0.5); Lymphocytes Absolute Auto 2.30 K/mm3 (0.9-3.2); Mean Corpuscular HGB Conc 33.0 g/dl (32-36); Mean Corpuscular Hemoglobin 29.4 pg (26-34); Mean Corpuscular Volume 89.2 fl (80-100); Nucleated Red Blood Cells Absolute Auto 0.000 K/mm3 (0.0-0.012); Nucleated Red Blood Cells Perc 0.0 % (0.0-0.2); Platelet Count Result 233 k/mm3 (150-375); Red Blood Count 4.08 M/mm3 (4.6-6.20); White Blood Count 10.7 K/mm3 (4.5-10.0)
[2025-06-18 02:20] LABS: Alanine Aminotransferase 16 U/L (6-50); Albumin Level 4.2 g/dL (3.5-5.1); Alkaline Phosphatase 40 U/L (38-126); Anion Gap 11 mmol/L (4-12); Aspartate Amino Transferase 27 U/L (17-59); Bilirubin,Total 0.8 mg/dL (0.2-1.3); Blood Urea Nitrogen 17 mg/dL (9-20); Calcium 9.1 mg/dL (8.4-10.2); Carbon Dioxide 21 mmol/L (22-30); Chloride 104 mmol/L (98-107); Creatine Kinase 160 U/L (55-170); Estimated CRCL calculation 62 ml/min; Estimated Glomerular Filt Rate > 60; Glucose 132 mg/dL (65-110); Magnesium 1.9 mg/dL (1.6-2.3); Potassium 3.6 mmol/L (3.4-5.0); Sodium 136 mmol/L (137-145); Total Protein 7.6 g/dL (6.3-8.2)
[2025-06-18 02:45] VITALS: TEMP 36.9
[2025-06-18 02:58] LABS: INR 1.2; Partial Thromboplastin Time 36.5 Seconds (22.3-36.8); Prothrombin Time 15.1 Seconds (11.1-14.7)
[2025-06-18] MEDS: RIVAROXABAN 15 MG TABLET PO (04:04)
[2025-06-18 04:20] VITALS: BP 134/82; PULSE 77; RESP 16; TEMP 36.6; O2SAT 98
== END 2025-06-18 04:22 | disposition home or self-care (01) ==
PROVIDERS: Emergency Provider Student in an Organized Health Care Education/Training Program; PCP Internal Medicine
DX: M23.51 Chronic instability of knee, right knee (principal); S80.212A Abrasion, left knee, initial encounter; S80.211A Abrasion, right knee, initial encounter; R60.0 Localized edema; D64.9 Anemia, unspecified; R79.1 Abnormal coagulation profile; K21.9 Gastro-esophageal reflux disease without esophagitis; Z96.651 Presence of right artificial knee joint; W01.0XXA Fall on same level from slipping, tripping and stumbling without subsequent striking against object, initial encounter
CPT/HCPCS: 36415; 70450; 73564; 80053; 82550; 83735; 85025; 85380; 85610; 85730; 99284; A9270

== ENCOUNTER 2025-06-18 07:39 | Outpatient (CLI) | payer MEDICARE, BC, SELFPAY ==
--- NOTE | ~2025-06-18 | US_ITS ---
EXAMINATION: US venous doppler [facility] DATE: 06/18/2025 08:58 INDICATION: Right leg pain TECHNIQUE: Grayscale ultrasound images without and with compression and Doppler ultrasound images of the bilateral lower extremity veins were obtained. COMPARISON: None. FINDINGS: The visualized portions of right common femoral vein, profunda (deep) femoral vein, femoral vein, pop liteal vein, peroneal veins, posterior tibial veins, and greater saphenous vein outflow are patent. The visualized portions of left common femoral vein, profunda femoral vein, femoral vein, popliteal v ein, peroneal veins, posterior tibial veins, and greater saphenous vein outflow are patent. IMPRESSION: 1. No deep venous thrombosis. Reviewed, dictated and finalized at location A.
--- OUTSIDE RECORDS SUMMARY | 2025-06-18 07:43 | XMS_ITS | Clinical Summary ---
Author Organization [email or web address] Address [address] [place] [address] Care Team Providers Care Rough Planer Tender Name Role Phone Igor Calixzeny Sal DO Primary Care Provider [phone] Source Comments [facility],non-owned Affiliates and Associated Physician Practices is amultiple site organization consisting of ambulatory clinics and hospital sitesin [place], [place], [place] and [place]. This disclosure is being madepursuant to the Care Everywhere program and may not contain all information available regarding this patient. Last updated 18.[facility] Allergies No known active allergies Medications * [...] AM CDT Legal Sex Male 8:23 AM DEDICATED OWNER OPERATOR Gender Identity Male 08/23/2021 11:45 AM CDT [...] 115.7 kg (255 lb) 11/08/2021 3:26 PM DEDICATED OWNER OPERATOR Height 180.3 cm (5' 11) 11/08/2021 3:26 PM DEDICATED OWNER OPERATOR Body Mass Index 35.57 11/08/2021 3:26 PM DEDICATED OWNER OPERATOR Plan of Treatment Health Maintenance Due Date [...] this topic Medical Devices Implanted Type Area Awake Overnight Counselor Device Identifier Shelf Expiration Date Model / Serial / Lot Cmnt Bone Djo Srg Cblt 40gm Hvisc Strl Implanted:Qty: 1 on 07/19/2021 by Rex Smith MD at [facility] Right: Knee [employer] 12/26/2022 600-15-000 / / [id number] Mike Bone [place]-G Hv 40/20 Implanted:Qty: 1 on 07/19/2021 by Rex Smith MD at [facility] Right: Knee [employer] 12/26/2022 600-15-100 / / [id number] Tray Tib 79mm Kn Cocr I Beam Implanted:Qty: 1 on 07/19/2021 by Rex Smith MD at [facility] Right: Knee [employer] 06/10/2030 [id number] / / [id number] Cmpnt Fem Kn Rt Cr Cmnt Prm Vngrd Intlk Implanted:Qty: 1 on 07/19/2021 by Rex Smith MD at [facility] Right: Knee [employer] 03/15/2031 [id number] / / [id number] Cmpnt Ptlr 31mm 1 Pg Wire Ascnt Arcm Kn Implanted:Qty: 1 on 07/19/2021 by Rex Smith MD at [facility] Right: Knee [employer] 06/15/2026 [id number] / / [id number] Vngrd Arcm Kn Ant Stab Implanted:Qty: 1 on 07/19/2021 by Rex Smith MD at [facility] Right: Knee [employer] 04/04/2026 [id number] / / [id number] Insurance MEDICARE [facility] MEDICARE [facility] Advance Directives * Full Code (Latest Code Status on File) Date Activated Date Inactivated Comments 07/19/2021 3:22 PM 07/20/2021 4:14 PM Care Teams Rough Planer Tender Relationship Specialty Start Date End Date Alfonzo Calix DO [address] [facility] [address] [facility] [address] [place] [address] PCP - General 01/01/19
== END 2025-06-18 07:40 | disposition home or self-care (01) ==
PROVIDERS: PCP Internal Medicine; Visit Provider Student in an Organized Health Care Education/Training Program
DX: M79.661 Pain in right lower leg (principal)
CPT/HCPCS: 93970